=== PATIENT | female | born 1985 | race Caucasian/White ===

== ENCOUNTER 2018-06-08 08:17 | Inpatient (IN) | payer MEDICAID ==
[2018-06-08] MEDS ORDERED: IBUPROFEN 600 MG TAB PO (10:00)
[2018-06-08] MEDS ORDERED: LIDOCAINE 1% (MPF) 30 ML INJ INJ (10:00)
[2018-06-08] MEDS ORDERED: OXYTOCIN 30 UNITS/LR 500 ML IV ×2 (10:00)
[2018-06-08] MEDS ORDERED: CARBOPROST 250 MCG INJ IM (10:00)
[2018-06-08] MEDS ORDERED: BUTORPHANOL 2 MG INJ IV (10:00)
[2018-06-08] MEDS ORDERED: MISOPROSTOL 200 MCG TAB PR (10:00)
[2018-06-08] MEDS ORDERED: METHYLERGONOVINE 0.2 MG INJ IM (10:00)
[2018-06-08] MEDS: LACTATED RINGER'S 1,000 ML IV ×4 (10:11→23:29)
[2018-06-08 10:21] LABS: ADD MAN DIFF? NO
[2018-06-08 10:28] LABS: BASOPHILS % 0.4 % (0.0-2.0); EOSINOPHILS # 0.1 10^3/ul (0.0-0.5); EOSINOPHILS % 0.6 % (0.0-7.0); HEMATOCRIT 38.8 % (37.0-47.0); LYMPHOCYTES # 1.6 10^3/ul (0.8-2.9); LYMPHOCYTES % 17.5 % (15.0-51.0); MEAN CORPUSCULAR HEMOGLOBIN 30.2 pg (29.0-33.0); MEAN CORPUSCULAR HGB CONC 33.5 g/dl (32.0-37.0); MEAN PLATELET VOLUME 11.6 fl (7.4-10.4); MONOCYTE # 0.5 10^3/ul (0.3-0.9); NEUTROPHIL # 6.7 10^3/ul (1.6-7.5); NEUTROPHILS % 75.1 % (39.0-77.0); PLATELET COUNT 209 10^3/UL (140-415); RED BLOOD COUNT 4.31 10^6/ul (4.20-5.40); RED CELL DISTRIBUTION WIDTH 12.9 % (11.5-14.5)
[2018-06-08 10:58] LABS: INR 0.89; PROTIME 12.2 Sec (11.9-14.9)
[2018-06-08 10:59] LABS: PARTIAL THROMBOPLASTIN TIME 28.9 Sec (23.0-35.0)
[2018-06-08 15:28] LABS: RAPID PLASMA REAGIN NONREACTIVE (NR)
[2018-06-08] MEDS ORDERED: FENTAnyl 2MCG/ML-ROPIV 0.2% 100 ML (19:25)
[2018-06-08] MEDS ORDERED: NALOXONE (0.4 MG/ML) INJ IV (19:30)
[2018-06-08] MEDS: FENTAnyl 2MCG/ML-ROPIV 0.2% 100 ML BAG EPI (19:46)
[2018-06-08 20:54] LABS: HEPATITIS B SURFACE ANTIGEN NEGATIVE (NEGATIVE)
[2018-06-09] MEDS ORDERED: CEFAZOLIN 2 GM/50 ML (PMX) 50 ML IVPB (01:00)
[2018-06-09] MEDS ORDERED: MINERAL OIL LIGHT 10 ML VIAL TOP (04:00)
[2018-06-09] MEDS: FENTAnyl 2MCG/ML-ROPIV 0.2% 100 ML BAG EPI (04:43)
[2018-06-09] MEDS: LACTATED RINGER'S 1,000 ML IV ×3 (08:22→16:02)
[2018-06-09] MEDS ORDERED: LIDOCAINE 1.5%/EPI MPF (SDV) 30 ML VIAL (08:52)
[2018-06-09] MEDS ORDERED: FENTAnyl 50 MCG/ML VIAL (08:53)
[2018-06-09] MEDS ORDERED: ONDANSETRON 4 MG INJ (09:02)
[2018-06-09] MEDS ORDERED: DEXAMETHASONE 4 MG/ML 1 ML INJ (09:02)
[2018-06-09] MEDS ORDERED: SODIUM BICARBONATE (IV ADD) 50 ML (09:24)
[2018-06-09] MEDS ORDERED: morphine SULFATE/PF (10 MG/10 ML) INJ (09:25)
[2018-06-09] MEDS ORDERED: NALOXONE (0.4 MG/ML) INJ IV (09:30)
[2018-06-09] MEDS ORDERED: ZOLPIDEM 5 MG TAB PO (09:30)
[2018-06-09] MEDS ORDERED: HYDROmorphONE 0.5 MG/0.5 ML SYG IV ×2 (09:30)
[2018-06-09] MEDS ORDERED: ONDANSETRON 4 MG INJ IV (09:30)
[2018-06-09] MEDS ORDERED: DIPHENHYDRAMINE 50 MG INJ IV (09:30)
[2018-06-09] MEDS: OXYTOCIN 30 UNITS/LR 500 ML IV (10:28)
[2018-06-09] MEDS: KETOROLAC 30 MG INJ IV (11:57)
[2018-06-09] MEDS: AZITHROMYCIN 500MG/NS (PMX) 250 ML IVPB (12:56)
[2018-06-09] MEDS ORDERED: MISOPROSTOL 200 MCG TAB PR (13:30)
[2018-06-09] MEDS ORDERED: OXYTOCIN 30 UNITS/LR 500 ML IV (13:30)
[2018-06-09] MEDS ORDERED: LANOLIN HPA 1 PKT TOP (13:30)
[2018-06-09] MEDS ORDERED: NA PHOSPHATE/BIPHOS 133 ML ENEMA PR (13:30)
[2018-06-09] MEDS ORDERED: CARBOPROST 250 MCG INJ IM (13:30)
[2018-06-09] MEDS ORDERED: METHYLERGONOVINE 0.2 MG INJ IM (13:30)
[2018-06-09] MEDS ORDERED: OXYCODONE/ACETAMINOPHEN (5/325) TAB PO (13:30)
[2018-06-09] MEDS: CEFAZOLIN 2 GM/50 ML (PMX) 50 ML IVPB ×2 (16:01→21:00)
[2018-06-09] MEDS: SENNA/DOCUSATE NA (8.6MG/50MG) TAB PO (21:00)
[2018-06-10] MEDS: LACTATED RINGER'S 1,000 ML IV (00:29)
[2018-06-10] MEDS: KETOROLAC 30 MG INJ IV (05:00)
[2018-06-10] MEDS: CEFAZOLIN 2 GM/50 ML (PMX) 50 ML IVPB (05:01)
[2018-06-10 08:31] LABS: ADD MAN DIFF? NO
[2018-06-10 08:36] LABS: WHITE BLOOD COUNT 10.1 10^3/ul (4.8-10.8)
[2018-06-10 08:36] LABS: BASOPHILS % 0.3 % (0.0-2.0); EOSINOPHILS # 0.1 10^3/ul (0.0-0.5); EOSINOPHILS % 0.9 % (0.0-7.0); HEMATOCRIT 31.8 % (37.0-47.0); HEMOGLOBIN 10.5 g/dl (12.0-16.0); LYMPHOCYTES # 2.2 10^3/ul (0.8-2.9); LYMPHOCYTES % 22.1 % (15.0-51.0); MEAN CORPUSCULAR VOLUME 90.9 fl (82.0-101.0); MEAN PLATELET VOLUME 11.4 fl (7.4-10.4); MONOCYTE # 0.7 10^3/ul (0.3-0.9); MONOCYTES % 6.6 % (0.0-11.0); NEUTROPHILS % 69.6 % (39.0-77.0); PLATELET COUNT 184 10^3/UL (140-415); RED CELL DISTRIBUTION WIDTH 13.2 % (11.5-14.5)
[2018-06-10] MEDS: SENNA/DOCUSATE NA (8.6MG/50MG) TAB PO ×2 (09:13→21:30)
[2018-06-10] MEDS: BISACODYL 10 MG SUPP PR (10:30)
[2018-06-10] MEDS: CLINDAMYCIN 300 MG CAP PO ×3 (11:50→23:34)
[2018-06-10] MEDS: HYDROCODONE/APAP (5/325) TAB PO (12:41)
[2018-06-10] MEDS: IBUPROFEN 800 MG TAB PO ×2 (14:19→21:30)
[2018-06-11] MEDS: IBUPROFEN 800 MG TAB PO ×3 (05:49→21:53)
[2018-06-11] MEDS: CLINDAMYCIN 300 MG CAP PO ×3 (05:49→17:25)
[2018-06-11] MEDS: SENNA/DOCUSATE NA (8.6MG/50MG) TAB PO ×2 (09:00→21:53)
[2018-06-11] MEDS ORDERED: ACETAMINOPHEN 325 MG TAB PO (17:00)
[2018-06-12] MEDS: CLINDAMYCIN 300 MG CAP PO ×3 (00:06→11:37)
[2018-06-12] MEDS: IBUPROFEN 800 MG TAB PO ×2 (05:42→13:01)
[2018-06-12] MEDS: MEASLES,MUMPS,RUBELLA VACCINE INJ SC* (09:00)
[2018-06-12] MEDS: DIPHTH/TET/ACEL PERTUSS (ADULT) 0.5 ML VIAL IM* (09:00)
[2018-06-12] MEDS: SENNA/DOCUSATE NA (8.6MG/50MG) TAB PO (11:37)
== END 2018-06-12 13:35 | disposition home or self-care (01) | DRG 788 ==
LOC: OBT 08:17 → L-D 06-09 08:53 → PP1 06-09 17:09 → OBT 09:37 → L-D 09:30
PROVIDERS: Obstetrics & Gynecology
PROC: 10D00Z1 Extraction of Products of Conception, Low, Open Approach (ICD-10-PCS; principal; 2018-06-09 07:30)
DX: O34.211 Maternal care for low transverse scar from previous cesarean delivery (principal); O48.0 Post-term pregnancy; O62.1 Secondary uterine inertia; Z3A.40 40 weeks gestation of pregnancy; Z37.0 Single live birth
CPT/HCPCS: 62319; 76815; 85025; 85610; 85730; 86592; 86850; 86900; 86901; 87340; 99464